=== PATIENT | male | born 1970 ===

== ENCOUNTER 2025-02-26 02:43 | Outpatient (CLI) | payer SELFPAY ==
--- NOTE | 2025-02-26 12:30 | DI.US_ITS ---
APPROVED REPORT EXAM: Comprehensive 2D, Doppler, and color-flow Echocardiogram Patient Location: Out-Patient Machine Inspector: Solomon Treadwell RDCS (AE) Indications: Cardiac murmur heard on DOT exam Other Information Study Quality: Adequate Conclusion Normal left ventricular wall thickness and chamber size. Ejection fraction is 60 to 65%. Wall motion is normal Normal right ventricular size and function Normal right atrial size. Left atrium is moderately enlarged Trileaflet aortic valve without stenosis or regurgitation There is prolapse of the posterior mitral leaflet with moderate to severe mitral regurgitation Mild tricuspid regurgitation. Estimated right ventricular size systolic pressure is 34 mmHg Wall motion Left Ventricle Left ventricle is mildly dilated. The left ventricular systolic function is normal. The left ventricular ejection fraction is within the normal range. There is normal left ventricular wall thickness. There is normal LV segmental wall motion. There is no ventricular septal defect visualized. LVEF is 60-65%. Right Ventricle The right ventricle is normal size. The right ventricular systolic function is normal. Atria Left atrium is moderately dilated. The right atrium size is normal. Atrial septum is bowed toward the right, consistent with elevated left atrial pressures. Aortic Valve The aortic valve is normal in structure. Aortic valve is trileaflet. There is no aortic valvular stenosis. No aortic regurgitation is present. Mitral Valve Mild prolapse of the posterior mitral valve leaflet. No evidence of mitral valve stenosis. Moderate to severe mitral regurgitation. Tricuspid Valve The tricuspid valve is normal in structure. There is no tricuspid valve stenosis. Mild tricuspid regurgitation. The RVSP is 34.2 mmHg. Pulmonic Valve The pulmonary valve is normal in structure. There is no pulmonic valvular stenosis. There is no pulmonic valvular regurgitation. Great Vessels The aortic root is normal in size. The ascending aorta is normal in size. Aortic arch is normal in caliber. IVC is normal in size and collapses >50% with inspiration. Pericardium There is no pericardial effusion. 2D Dimensions IVSD d PLAX 1.20 cm M: 0.6-1.2 Ao Root d 3.30 cm M: 3.1 - 3.7 LVPW d PLAX 1.16 cm M: 0.6 - 1.2 Ao Asc Diam d 3.18 cm M: 2.6 - 3.4 LVID d PLAX 6.81 cm M: 4.2 - 5.8 LVDs 4.56 cm M: 2.5 - 4.0 LV EF Teichholz 60.2 % FS 32.98 % LV EDV (Teich) 240.0 mL LV ESV (Teich) 95.6 mL Stroke Vol Index (Teich) 67.83 M-Mode TAPSE 2.57 cm (M/F) >1.7 Auto EF LV EDV A4C 193.0 mL LV EDV A2C 186.4 mL LV EDV BP 192.7 mL LV ESV A4C 68.5 mL LV ESV A2C 65.7 mL LV ESV BP 68.0 mL LVEF(%) A4C 64.5 % LVEF(%) A2C 64.8 % LVEF(%) BP 64.7 % LV SV A4C 124.5 ml LV SV A2C 120.8 ml LV SV BP 124.7 ml LV CO A4C 7.7 L/min LV CO A2C 8.1 L/min LV CO BP 7.9 L/min HR A4C 61.65 BPM HR A2C 67.05 BPM LV EDV Index (BP) LA Volume LA Length A4C 6.8 cm LA Length A2C LA Area A4C s 28.19 cm2 LA Area A2C s LA Vol A4C A-L 99.16 mL LA Vol A2C A-L LA Vol Biplane A-L LA Vol A4C MOD 94.3 mL LA Vol A2C MOD LA Vol BP MOD RA Volume RA Area A4C 9.4 cm2 RA ESV A4C (A-L) 15.1mL RA Vol/BSA A4C A-L RA Length A4C 4.9 cm RA ESV A4C (MOD) 15.0mL LV Diastology MV E' medial 0.118 (>0.07 m/s) MV E Vmax 1.38 (0.4-1.3 m/s) MV E/E' MED 11.75 (<14) MV A Vmax 0.65 (0.4-1.3 m/s) MV E' lateral 0.159 (>0.1 m/s) E/A Ratio 2.1 MV E/E' LAT 8.71 (<14) MV E' Average 0.138 m/s MV E/E'(average) 10.00 Aortic Valve AoV Vmax 1.79 m/s LVOT Vmax 1.41 m/s AoV Peak Grad 12.8 mmHg LVOT Peak Grad 8.0 mmHg AoV Area (Vmax) 2.47 cm2 LVOT VTI 0.250 m AoV VTI 0.285 m LVOT Mean Grad 4.0 mmHg AoV Mean Dell. 0.98 m/s LVOT SV 78.34 mL AoV Mean Grad 5.0 mmHg LVOT Diam s 1.95 cm AoV Area (VTI) 2.75 cm2 AV Regurg Peak Gr. 12.83 mmHg Velocity Ratio 0.79 Mitral Valve MV DT 184 (160-240 msec) MV Vmax TIPS 1.46 m/s MV Mean Grad 2.4 (<2mmHg) MV VTI 0.383 m Pulmonary Valve PV Vmax 1.26 (0.5-1.5 m/s) RVOT Vmax 0.82 m/s PV Peak Grad 6.4 mmHg RVOT Peak Gr. 2.7 mmHg PV Mean Dell 0.93 m/s RVOT VTI 0.138 m PV Mean Grad 3.8 mmHg RVOT Mean Gr. 1.6 mmHg Tricuspid Valve RA Pressure 3.00 mmHg TR Vmax 2.79 m/s TR Peak Grad 31.2 mmHg RVSP (TR) 34.2 mmHg
== END 2025-02-26 03:03 ==
PROVIDERS: Visit Provider Internal Medicine Cardiovascular Disease
DX: I08.0 Rheumatic disorders of both mitral and aortic valves (principal)
CPT/HCPCS: 93306